=== PATIENT | male | born 1965 | race African-American/Black ===

== ENCOUNTER 2017-02-01 09:24 | Emergency (ER) | payer OTHER | END 2017-02-01 10:47 | disposition home or self-care (01) | LOC: FER 09:24 | DX: S20.211A Contusion of right front wall of thorax, initial encounter (principal); E11.9 Type 2 diabetes mellitus without complications; I42.9 Cardiomyopathy, unspecified; E03.9 Hypothyroidism, unspecified; F17.200 Nicotine dependence, unspecified, uncomplicated; W19.XXXA Unspecified fall, initial encounter; Y92.69 Other specified industrial and construction area as the place of occurrence of the external cause; Y99.0 Civilian activity done for income or pay | CPT/HCPCS: 71020; 71100 ==

== ENCOUNTER 2017-04-26 17:19 | Emergency (ER) | payer OTHER ==
[2017-04-26 18:16] LABS: BASOPHIL 0.3 % (0-2); EOSINOPHIL 0.9 % (0-5); HCT 42.7 % (42.0-52.0); HGB 14.9 g/dl (13.2-18.0); LYMPHOCYTE 29.2 % (15-48); MCH 31.3 pg (25.0-31.0); MCHC 34.9 g/dL (32.0-36.0); MCV 89.7 fL (78.0-100.0); MONOCYTE 11.8 % (0-12); MPV 8.8 fL (6.0-9.5); NEUTROPHIL 57.8 % (41-80); PLT 346 K/uL (150-400); RBC 4.76 M/uL (4.70-6.00); RDW 13.9 % (11.5-14.0); WBC 11.1 K/uL (4.0-10.5)
[2017-04-26 18:24] LABS: CREATININE 1.2 mg/dL (0.7-1.2); POTASSIUM 3.5 mmol/L (3.5-5.1)
[2017-04-26 18:36] LABS: FT4 (FREE T4) 1.48 ng/dL (0.93-1.70); TSH (THYROID STIM HORMONE) 2.82 uIU/mL (0.270-4.200)
== END 2017-04-26 20:06 | disposition home or self-care (01) ==
LOC: FER 17:19
PROVIDERS: Internal Medicine
DX: R53.1 Weakness (principal); R00.2 Palpitations; R05 Cough; R11.0 Nausea; I10 Essential (primary) hypertension; E11.9 Type 2 diabetes mellitus without complications; E03.9 Hypothyroidism, unspecified; K21.9 Gastro-esophageal reflux disease without esophagitis; F32.9 Major depressive disorder, single episode, unspecified; F17.200 Nicotine dependence, unspecified, uncomplicated; Z79.84 Long term (current) use of oral hypoglycemic drugs; Z79.899 Other long term (current) drug therapy
CPT/HCPCS: 36415; 71010; 80048; 84439; 84443; 84484; 85025; 93005